=== PATIENT | male | born 1960 | race Caucasian/White ===

== ENCOUNTER 2019-07-06 23:27 | Emergency (ER) | payer OTHER ==
[~2019-07-06] VITALS: Ht 188 cm; Wt 111.1 kg
[2019-07-06] MEDS ORDERED: IBUPROFEN 600 MG TABLET PO ONE (23:48)
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
--- NOTE | 2019-07-06 23:55 | NUR ---
LEFT FOR CT
[2019-07-07] MEDS ORDERED: IBUPROFEN 600 MG TABLET PO ONE (00:30)
[2019-07-07] MEDS ORDERED: HYDROCODONE/APAP 10/325MG 1 EA TABLET ONE (00:49)
[2019-07-07] MEDS ORDERED: HYDROCODONE/APAP 10/325MG 1 EA TABLET PO ONE (01:00)
[2019-07-07 01:33] VITALS: BP 139/89
--- NOTE | 2019-07-07 01:33 | NUR ---
Patient discharged to home in stable condition. rx and Written and verbal after care instructions given. Patient verbalized understanding of instruction.
== END 2019-07-07 01:34 | disposition home or self-care (01) ==
LOC: ER 23:35
DX: S60.312A Abrasion of left thumb, initial encounter (principal); M54.6 Pain in thoracic spine; M25.512 Pain in left shoulder; M54.2 Cervicalgia; M25.552 Pain in left hip; G43.909 Migraine, unspecified, not intractable, without status migrainosus; F17.200 Nicotine dependence, unspecified, uncomplicated; V49.49XA Driver injured in collision with other motor vehicles in traffic accident, initial encounter; Y93.89 Activity, other specified; Y92.411 Interstate highway as the place of occurrence of the external cause; Y99.8 Other external cause status; M19.042 Primary osteoarthritis, left hand
CPT/HCPCS: 72125-TC; 73130-TC; 73502